=== PATIENT | male | born 1995 | race African-American/Black ===

== ENCOUNTER 2017-09-30 07:01 | Emergency (ER) | payer MEDICARE, MEDICAID ==
[~2017-09-30] VITALS: Ht 182.9 cm; Wt 103.0 kg
[2017-09-30] MEDS ORDERED: HALDOL DECAN50 MG/M1 IM (07:15)
[2017-09-30] MEDS ORDERED: IBUPROFEN 800800 MG PO (08:07)
[2017-09-30 08:36] VITALS: BP 116/78
--- NOTE | 2017-09-30 10:31 | NUR ---
WAS ASKED TO ASSIST PT IN ER WAITING ROOM THAT WAS HOMELESS. MET WITH PT, HE WAS ONLY ABLE TO GIVE LITTLE INFO BUT STATED HE HAD A BUSINESS SALES CONSULTANT AT [place] THAT WAS WORKING ON PLACEMENT FOR HIM AT [facility]. HE COULDN'T REMEMBER CW NAME. CALL TO [facility], LEFT MESSAGE. CALL TO [facility], THEY WERE AWARE OF PT AND ABLE TO GIVE ME HIS CW CHELSY'S CELL [phone]. CALL PLACED TO RENE, SHE CONFIRMED SHE WAS CW AND THAT SHE HAS ARRANGED FOR A RESPITE BED TODAY AT 3PM FOR PT AT [facility] [address], [place] [address]. SHE DOES NOT HAVE A PLACE FOR PT TO GO UNTIL THEN. SHE ALSO STATED SHE HAD SPOKEN TO PT ON HIS CELL PHONE YESTERDAY AND JUST A FEW MOMENTS AGO. PT HAD TOLD THIS CM THAT HIS CELL WASN'T WORKING. WENT BACK TO ER WAITING ROOM TO TALK WITH PT, HE DID STATE HE SPOKE WITH RENE AND AWARE SHE IS PICKING HIM UP AT 2PM TO TAKE HIM TO HIS BED AT [facility]. PT DID HAVE ANY IDEA WHERE HE COULD GO UNTIL 2PM. DISCUSSED WITH NITESH CAO IN ER. HE WILL PROVIDE PT WITH FOOD VOUCHER AND ALLOW HIM TO WAIT IN ER WAITING ROOM UNTIL CAN BE PICKED UP AT [address]. [address] PL[address] CALL TO PT'S GRANDMOTHER LISTED ON FACE SHEET, HAD TO LEAVE MESSAGE. PT ALSO STATED HIS WALLET WAS AT THE [facility] WHERE HE WAS PREVIOUSLY STAYING. CALL TO [facility], THEY WILL CHECK WITH HOUSEKEEPING AND GET BACK TO PT. UPDATED NITESH CAO WITH INFO AND RENE'S NUMBERS. HE WILL ENSURE PT IN ER WAITING ROOM FOR LIFE CONSULTANT AT 2PM
== END 2017-09-30 08:39 | disposition home or self-care (01) ==
LOC: M.ERS 07:01
DX: S70.11XA Contusion of right thigh, initial encounter (principal); F17.210 Nicotine dependence, cigarettes, uncomplicated; V09.9XXA Pedestrian injured in unspecified transport accident, initial encounter; Y93.89 Activity, other specified; Y92.481 Parking lot as the place of occurrence of the external cause; Y99.8 Other external cause status